=== PATIENT | female | born 1965 | race Caucasian/White ===

== ENCOUNTER 2020-01-28 12:31 | Day surgery (SDC) | payer BC, OTHER ==
[~2020-01-28] VITALS: Ht 172.7 cm; Wt 144.1 kg
[~2020-01-28 12:31] MED LIST: LIDOCAINE/PF 2% 5 ML VIAL INJ ONE; PROPOFOL 1% 20 ML VIAL IVP ONE; SODIUM CHLORIDE 0.9% 1,000 ML IV ONE; SODIUM CHLORIDE 0.9% 1,000 ML ONE
[2020-01-28 13:42] LABS: COVID AG,FIA SOURCE NASOPHARYNGEAL
== END 2020-01-28 16:20 | disposition home or self-care (01) ==
LOC: SURGERY 12:31
PROVIDERS: ATTEND Student in an Organized Health Care Education/Training Program
DX: R19.7 Diarrhea, unspecified (principal); K57.30 Diverticulosis of large intestine without perforation or abscess without bleeding; J44.9 Chronic obstructive pulmonary disease, unspecified; K64.8 Other hemorrhoids; Z87.891 Personal history of nicotine dependence; Z90.710 Acquired absence of both cervix and uterus; Z98.890 Other specified postprocedural states; Z90.49 Acquired absence of other specified parts of digestive tract
CPT/HCPCS: 45380; 87426; C1769; J2704; J3490; J7030; 88305